=== PATIENT | female | born 1985 | race Caucasian/White ===

== ENCOUNTER 2020-11-25 16:20 | Emergency (ER) | payer BC, SELFPAY ==
[2020-11-25 16:25] VITALS: BP 126/59; PULSE 94; RESP 16; TEMP 36.8; O2SAT 97
--- NOTE | 2020-11-25 16:49 | ED.WOUNDLAC ---
HPI - Wound/Laceration General Chief Complaint: Skin/Abscess/Foreign Body Stated Complaint: infection Source: patient Mode of arrival: ambulatory Limitations: no limitations History of Present Illness HPI narrative: patient presents with a lesion on the right exterior nose that is red and warm to touch with currently no drainage but there is a crusty lesion in the center occurred couple of days ago after playing with her son and he inadvertently a bit her nose and subsequent lesion presented. Currently there is no fever chills no nausea vomiting no shortness of breath. Onset (ago): day(s) Location: face Place: home Patient tetanus UTD: No Context: accidental Related Data Home Medications Medication Instructions Recorded Confirmed aripiprazole 2 mg PO DAILY 11/25/20 11/25/20 fluoxetine 20 mg PO DAILY 11/25/20 11/25/20 Allergies Allergy/AdvReac Type Severity Reaction Status Date / Time No Known Allergies Allergy Unverified 06/06/16 14:57 Review of Systems Review of Systems: All systems reviewed & are unremarkable except as noted in HPI and below PMFSH Past Medical History Medical History Depression Family History Family History Other Diabetes mellitus Family history of arthritis Family history of malignant neoplasm Family history of mental disorder Social History Social History Smoking status: Heavy tobacco smoker Alcohol intake: current Exam Const: General: no acute distress and alert Orientation/consciousness: patient oriented x3 Limitations: altered mental status HENMT: Head: normal to inspection Other: round red lesion exterior right side of nose with crusted center with currently no drainage is warm and tender Eyes: Conjunctivae: conjunctivae normal Pupils: Equal, round and reactive pupils present Neck: Neck: normal visual inspection Chest: Chest palpation & inspection: normal inspection of the chest Resp: Effort & Inspection: normal respiratory effort Auscultation: clear to auscultation bilaterally Cardio: Rate: regular rate Rhythm: regular rhythm GI: GI Palp: Yes Soft to palpation Percussion: Yes normal to percussion Skin: Other: erythematous lesion on right side of nose with a crusty center approximately 3cm in diameter Neuro: General: patient oriented x3 and moves all extremities Psych: Mental Status: mental status grossly normal Affect: normal affect Course Course Emergency Course: placed some triple antibiotic ointment on the lesion and started a dose of Augmentin. Critical Care Time Critical Care Time Critical Care Time: No Discharge Plan Discharge Clinical Impression: Cellulitis Qualifiers: Site of cellulitis: face Qualified Code(s): L03.211 - Cellulitis of face Patient Disposition: Home, Self-Care Condition: Stable Instructions: Antibiotic Form, Cellulitis (ED) Additional Instructions: Take medicine as prescribed and follow-up with primary care physician if symptoms persist or worsen. Prescriptions: New mupirocin 2 % ointment 1 applic topical TID 7 Days Qty: 15 RF: 0 amoxicillin-pot clavulanate [Augmentin] 875-125 mg tablet 1 tablet PO Q12H Qty: 20 RF: 0 No Action fluoxetine 20 mg capsule 20 mg PO DAILY RF: 0 aripiprazole 2 mg tablet 2 mg PO DAILY RF: 0 Follow-up/Referrals: UNKNOWN,DOCTOR [Primary Care Provider] - Time of Disposition: 16:54
[2020-11-25] MEDS: NEOMYCIN/POLYMYXIN/BACITRACIN OINTMENT PACKET 1 PACKET TOPICAL (16:57)
[2020-11-25] MEDS: AMOXICILLIN/CLAVULANATE K 875-125 MG TAB 1 TABLET PO (16:57)
[2020-11-25 16:59] VITALS: RESP 16
== END 2020-11-25 17:00 | disposition home or self-care (01) ==
PROVIDERS: Emergency Provider Emergency Medicine
DX: L03.211 Cellulitis of face (principal)
CPT/HCPCS: 99283; A9270

== ENCOUNTER 2023-05-07 00:52 | Emergency (ER) | payer BC, SELFPAY ==
[2023-05-07 00:55] VITALS: BP 135/55; PULSE 98; RESP 16; TEMP 37.1; O2SAT 98
--- NOTE | 2023-05-07 00:57 | ED.GENADULT ---
HPI - General Adult General Chief complaint: Unspecified Stated complaint: unspecified Time Seen by Provider: 05/07/23 00:55 Source: patient Mode of arrival: ambulatory Limitations: no limitations History of Present Illness HPI narrative: 37-year-old female presented to the ER with -- tick stuck to her occipital scalp. the patient wanted this to be removed. -- Scintillating lights this morning, similar to what she has when she has her migraine. The patient did not have any headache subsequently. The blurred vision has resolved. No other visual complaints -- patient is . does not know exact LMP. Patient has not seen a primary care physician till date regarding her . Onset (ago): day(s) ( 1 day) Associated symptoms: denies other symptoms Treatments prior to arrival: none Related Data Home Medications Medication Instructions Recorded Confirmed aripiprazole 2 mg tablet 2 mg PO DAILY 11/25/20 11/25/20 fluoxetine 20 mg capsule 20 mg PO DAILY 11/25/20 11/25/20 Allergies Allergy/AdvReac Type Severity Reaction Status Date / Time No Known Allergies Allergy Unverified 05/07/23 01:01 Review of Systems Review of Systems: All systems reviewed & are unremarkable except as noted in HPI and below Constitutional: Constitutional: Reports as per HPI and Reports no additional constitutional complaints Eyes: Eyes: Reports as per HPI and Reports no additional eye complaints Comments: scintillating lights in her field of vision this morning which has resolved ENT: Reports system reviewed and no additional complaints, except as documented and Reports as per HPI Cardiovascular: Cardiovascular: Reports as per HPI and Reports no additional cardiovascular complaints Respiratory: Respiratory: Reports as per HPI and Reports no additional respiratory complaints Gastrointestinal: Gastrointestinal: Reports as per HPI and Reports no additional gastrointestinal complaints Genitourinary: Genitourinary: Reports no additional female genitourinary complaints Comments: amenorrhea for the past 3 months Musculoskeletal: Musculoskeletal: Reports no additional musculoskeletal complaints and Reports as per HPI Integumentary/Breasts: Skin/Breast: Reports system reviewed and no additional complaints, except as docu and Reports as per HPI Neurologic: Reports system reviewed and no additional complaints, except as documented and Reports as per HPI Psychiatric: Psychiatric: Reports no additional psychiatric complaints and Reports as per HPI Endocrine: Endocrine: Reports no additional endocrine complaints and Reports as per HPI Hematologic/Lymphatic: Hematologic/Lymphatic: Reports no additional hematologic/lymphatic complaints and Reports as per HPI Allergic/Immunologic: Allergic/Immunologic: Reports no additional allergic/immunologic complaints and Reports as per HPI [facility] Past Medical History Medical History Depression Family History Family History Other Diabetes mellitus Family history of arthritis Family history of malignant neoplasm Family history of mental disorder Social History Social History Smoking status: Heavy tobacco smoker Alcohol intake: current Exam Narrative: hemodynamically stable Const: General: healthy appearing and no acute distress Orientation/consciousness: patient oriented x3 Limitations: no limitations HENMT: Head: normal to inspection Ears: external ears normal Face/Nose/Sinus: Normal external nose present Face and sinus: normal facial exam Mouth: Yes Normal oral and palatal mucosa present Throat: posterior oropharynx normal Eyes: Conjunctivae: conjunctivae normal Pupils: Equal, round and reactive pupils present EOM: EOMs intact bilaterally Direct Ophthalmoscopy: no photophobia Neck: N
[2023-05-07 01:31] LABS: Basophils Absolute Auto 0.03 K/mm3 (0.00-0.10); Basophils Percent Auto 0.3 % (0.0-1.0); Eosinophils Absolute Auto 0.23 K/mm3 (0.02-0.50); Eosinophils Percent Auto 2.3 % (1.0-6.0); Hemoglobin 11.2 g/dL (12.0-15.0); Immature Granulocyte Absolute 0.04 K/mm3 (0.00-0.00); Immature Granulocyte Percent A 0.4 % (0.0-0.0); Lymphocytes Percent Auto 25.5 % (18.0-42.0); Mean Corpuscular HGB Conc 32.9 g/dL (32.0-36.0); Mean Corpuscular Hemoglobin 30.8 pg (27.0-31.0); Mean Corpuscular Volume 93.4 fL (78.0-102.0); Mean Platelet Volume 8.7 fl (9.2-11.8); Monocytes Absolute Auto 0.45 K/mm3 (0.10-0.90); Monocytes Percent Auto 4.4 % (2.0-11.0); Neutrophils Absolute Auto 6.8 K/mm3 (1.7-7.2); Neutrophils Percent Auto 67.1 % (50.0-70.0); Platelet Count Result 314 K/mm3 (150-420); Red Blood Count 3.64 M/mm3 (4.20-5.40); Red Cell Distribution Width 13.1 % (11.6-14.4); White Blood Count 10.2 K/mm3 (4.8-10.8)
[2023-05-07 02:01] LABS: Appearance Urine Clear (Clear); Bilirubin Urine Negative (Negative); Blood Urine Negative (Negative); Color Urine Yellow (Yellow); Glucose Urine UA 1+ (Negative); Ketones Urine Negative (Negative); Leukocyte Esterase Ur Negative LEU/UL (Negative); Nitrate Urine Negative (Negative); Protein Urine Negative (Negative); Specific Grav Ur 1.025 (1.010-1.020); Urobilinogen Urine 0.2 mg/dL (0.2-1.0)
[2023-05-07 02:06] LABS: Add Urine Microscopic? YES; Bacteria Urine None seen /hpf; RBC Urine 0-2 /hpf (0-2); Squamous Epithelial Cell Urine Moderate /hpf (Few); WBC Urine 0-3 /hpf (0-3)
[2023-05-07 02:16] LABS: Alanine Aminotransferase 40 U/L (14-59); Alkaline Phosphatase 59 U/L (46-116); Anion Gap 9 mmol/L (8-16); Aspartate Amino Transferase 16 U/L (15-37); Bilirubin,Total 0.1 mg/dL (0.00-1.00); Blood Urea Nitrogen 8 mg/dL (7-18); Calcium 8.8 mg/dL (8.5-10.1); Carbon Dioxide 24 mmol/L (21-32); Chloride 98 mmol/L (98-108); Estimated CRCL calculation 134 ml/min; Estimated Glomerular Filt Rate > 60; Glucose 150 mg/dL (70-99); Osmolality Calculated 273 mOsm/kg (285-295); Potassium 3.2 mmol/L (3.5-5.1); Sodium 131 mmol/L (136-145)
[2023-05-07] MEDS: POTASSIUM CHLORIDE 20 MEQ ER TABLET 40 MEQ PO (02:27)
--- NOTE | 2023-05-07 02:31 | PC.NURSE ---
Pt checked for any remaining ticks by this RN in common places such as scalp, ears, armpits, legs, waist, and back. No other ticks noted. aware.
[2023-05-07 02:46] VITALS: BP 133/51; PULSE 84; RESP 16; TEMP 36.6; O2SAT 99
== END 2023-05-07 02:46 | disposition home or self-care (01) ==
PROVIDERS: Emergency Provider Internal Medicine Critical Care Medicine
DX: O99.019 Anemia complicating pregnancy, unspecified trimester (principal); O26.899 Other specified pregnancy related conditions, unspecified trimester; R73.9 Hyperglycemia, unspecified; S00.96XA Insect bite (nonvenomous) of unspecified part of head, initial encounter; O99.330 Smoking (tobacco) complicating pregnancy, unspecified trimester; F17.200 Nicotine dependence, unspecified, uncomplicated; Z3A.00 Weeks of gestation of pregnancy not specified; W57.XXXA Bitten or stung by nonvenomous insect and other nonvenomous arthropods, initial encounter
CPT/HCPCS: 36415; 80053; 81001; 84702; 85025; 99283; A9270

== ENCOUNTER 2023-05-26 18:12 | Emergency (ER) | payer BC, SELFPAY ==
[2023-05-26 18:12] VITALS: BP 147/78; PULSE 106; RESP 18; TEMP 36.8; O2SAT 98
--- NOTE | 2023-05-26 18:53 | ED.GENADULT ---
HPI - General Adult General Chief complaint: Vaginal Bleeding Stated complaint: 3 months and bleeding Time Seen by Provider: 05/26/23 18:32 History of Present Illness HPI narrative: Summer is a 38 months gestation with twins with a PMH of tobacco abuse, and depression that presented to the ED with a couple genitourinary concerns. For the last few days she has had a lot of vaginal discharge for the last few days. It ranges between clear scant drainage but at times it has soaked a pad and been pink tinged. She had one episode of cramping 2 days ago but not since. She has had a few episodes of dysuria with hematuria as well. No back pain, fevers, or chills. She denies any new sexual partners. Related Data Home Medications Medication Instructions Recorded Confirmed aripiprazole 2 mg tablet 2 mg PO DAILY 11/25/20 05/26/23 fluoxetine 20 mg capsule 20 mg PO DAILY 11/25/20 05/26/23 aspirin 81 mg chewable tablet 81 mg PO DAILY 05/26/23 05/26/23 Allergies Allergy/AdvReac Type Severity Reaction Status Date / Time No Known Allergies Allergy Unverified 05/26/23 18:22 Review of Systems Review of Systems: All systems reviewed & are unremarkable except as noted in HPI and below PMFSH Past Medical History Medical History Depression Family History Family History Other Diabetes mellitus Family history of arthritis Family history of malignant neoplasm Family history of mental disorder Social History Social History Smoking status: Heavy tobacco smoker Alcohol intake: current Exam Const: General: healthy appearing and no acute distress Nutritional Appearance: well nourished Orientation/consciousness: patient oriented x3 Limitations: no limitations HENMT: Head: normal to inspection Ears: external ears normal Face and sinus: normal facial exam Eyes: Conjunctivae: conjunctivae normal Pupils: Equal, round and reactive pupils present EOM: EOMs intact bilaterally Neck: Neck: normal visual inspection Chest: Chest palpation & inspection: normal inspection of the chest Resp: Effort & Inspection: normal respiratory effort Cardio: Rate: regular rate GI: Inspection: non-distended GI Palp: Yes Soft to palpation, No Tenderness to palpation present (GI) and No Guarding due to palpation present (GI) : General: Yes no CVA tenderness External Female Exam: normal external appearance Speculum Exam - Vagina: normal appearance of the vagina, abnormal vaginal discharge malodorous, willis and frothy and No vaginal bleeding Speculum Exam - Cervix: Cervical os closed Back/Spine/Pelvis: Back: no CVA tenderness Skin: General skin exam: normal color Neuro: General: patient oriented x3 and moves all extremities Extrem: General: normal to inspection Psych: Mental Status: mental status grossly normal Course Course Emergency Course: Ordered UA, GC and chlamydia as well as wet prep As UA is unremarkable, trichomonas is negative, the cervix is closed and there is no pain or blood but there is pink/willis fouls smelling discharge BV is most likely. An Rx was sent to her pharmacy. Vital Signs Vital signs: Vital Signs Temperature 98.3 F 05/26/23 18:12 Pulse Rate 106 H 05/26/23 18:12 Respiratory Rate 18 05/26/23 18:12 Blood Pressure 147/78 H 05/26/23 18:12 Pulse Oximetry 98 05/26/23 18:12 Oxygen Delivery Room Air 05/26/23 18:12 Temperature 98.3 F 05/26/23 18:12 Pulse Rate 106 H 05/26/23 18:12 Respiratory Rate 18 05/26/23 18:12 Blood Pressure 147/78 H 05/26/23 18:12 Pulse Oximetry 98 05/26/23 18:12 Oxygen Delivery Room Air 05/26/23 18:12 Medical Decision Making Vital Signs Vital Signs: Vital Signs Temperature 98.3 F 05/26/23 18:12 Pulse Rate 106 H 05/26/23 18:12 Respiratory Rate
--- NOTE | 2023-05-26 19:15 | PC.NURSE ---
HIV consent refusal signed by pt. Prior to this RN arrival. Pt setup for vaginal exam and swabs/cultures.
[2023-05-26 19:31] LABS: Add Urine Microscopic? YES; Appearance Urine Clear (Clear); Bilirubin Urine Negative (Negative); Blood Urine Trace-Intact (Negative); Color Urine Light Yellow (Yellow); Glucose Urine UA Negative (Negative); Ketones Urine Negative (Negative); Leukocyte Esterase Ur 1+ LEU/UL (Negative); Nitrate Urine Negative (Negative); Protein Urine Negative (Negative); RBC Urine 0-2 /hpf (0-2); Specific Grav Ur <= 1.005 (1.010-1.020); Squamous Epithelial Cell Urine Few /hpf (Few); Urobilinogen Urine 0.2 mg/dL (0.2-1.0); pH Urine 6.5 (5.0-8.0)
[2023-05-26 19:32] LABS: Bacteria Urine Trace /hpf
[2023-05-26 19:53] LABS: Trichomonas Negative (Negative); Trichomonas Source Vaginal (Female)
--- NOTE | 2023-05-26 20:00 | PC.NURSE ---
ERP Dr. Barrett spoke c pt. about test results and need to call for f/u c her OB in AM. Pt has no pain, no other c/o. VSS.
[2023-05-26 20:11] VITALS: BP 125/68; PULSE 97; RESP 20; TEMP 36.9; O2SAT 98
--- NOTE | 2023-05-27 14:03 | PC.NURSE ---
WET PREP TRICHOMONAS FINAL RESULT: TRICHOMONAS : NEGATIVE. FUNGAL : NEGATIVE.
--- NOTE | 2023-05-29 16:41 | PC.NURSE ---
Final Urine culture report: No further treatment/action needed. per ERP Dr. Huggins.
--- NOTE | 2023-05-30 14:13 | PC.NURSE ---
Final results; C. Trachomatis RNA not detected and N. Gonorrhoeae RNA not detected.
== END 2023-05-26 20:16 | disposition home or self-care (01) ==
PROVIDERS: Emergency Provider Family Medicine
DX: O23.591 Infection of other part of genital tract in pregnancy, first trimester (principal); O99.331 Smoking (tobacco) complicating pregnancy, first trimester; F17.210 Nicotine dependence, cigarettes, uncomplicated; Z3A.00 Weeks of gestation of pregnancy not specified
CPT/HCPCS: 81001; 81513; 87086; 87088; 87210; 87491; 87591; 99284

== ENCOUNTER 2023-06-01 19:46 | Emergency (ER) | payer BC, SELFPAY ==
[2023-06-01 19:50] VITALS: BP 122/77; PULSE 87; RESP 20; TEMP 36.6; O2SAT 99
--- NOTE | 2023-06-01 19:50 | PC.NURSE ---
Emergency call placed to pts OB center at [facility] for high risk , spoke to Luis Antonio who [facility]
--- NOTE | 2023-06-01 20:09 | ED.GENADULT ---
HPI - General Adult General Chief complaint: OB/Uterine Contractions Stated complaint: miscarriage Time Seen by Provider: 06/01/23 20:09 Source: patient Mode of arrival: ambulatory Limitations: no limitations History of Present Illness HPI narrative: patient is a 37-year-old female intrauterine of twins 13 weeks intrauterine . EDC December 03, 2023. This is patient's 2nd she has 1 live she has no previous miscarriages until today. She was seen in the emergency room early in the week on April 26 and had bacterial vaginosis started on Flagyl 250 mg 3 times a day. She had some vaginal discharge and dysuria. Today this morning she felt fine. She was eating drinking stooling and voiding fine no fever cough runny nose sore throat bleeding or bruising dizziness or lightheadedness rash or itching pain anywhere drink other complaints. Prior to coming in the emergency room she went to the bathroom in the fetus was expelled her vagina. She had a little discomfort during this period. Denies any pain currently. Related Data Home Medications Medication Instructions Recorded Confirmed aripiprazole 2 mg tablet 2 mg PO DAILY 11/25/20 05/26/23 fluoxetine 20 mg capsule 20 mg PO DAILY 11/25/20 05/26/23 aspirin 81 mg chewable tablet 81 mg PO DAILY 05/26/23 05/26/23 Allergies Allergy/AdvReac Type Severity Reaction Status Date / Time No Known Allergies Allergy Unverified 05/26/23 18:22 Review of Systems Review of Systems: All systems reviewed & are unremarkable except as noted in HPI and below PMFSH Past Medical History Medical History Depression Family History Family History Other Diabetes mellitus Family history of arthritis Family history of malignant neoplasm Family history of mental disorder Social History Social History Smoking status: Heavy tobacco smoker Alcohol intake: current Exam Narrative: Female patient mild distress.? Head normocephalic, atraumatic.? Eyes conjunctiva pink sclera nonicteric.? Extraocular movements are intact.? Ears externally normal.? Oropharynx is clear with moist mucous membranes without exudates.? Neck is supple nontender no lymphadenopathy.? Back is nontender.? Lungs are clear.? Heart is regular rate and rhythm without murmurs gallops or rubs.? Chest wall is nontender.? Abdomen is soft and nontender, no hepatosplenomegaly or masses, no CVA tenderness no abdominal bruits.? patient has a fetus between her legs and fully expelled from her vagina neck to do of small piece of white tissue. Extremities no cyanosis clubbing or edema.? Skin is warm and dry without rashes or lesions.? Neurological patient is alert and oriented x4.? Motor and sensory grossly intact.? Gait is normal. Medical Decision Making MDM Narrative Medical decision making narrative: Patient placed in room 6 history and physical was done IV was started. Independent Historian: ? Patient Differential Dx includes but not limited to: miscarriage Medications were Reviewed:? ? Flagyl 250 twice a day Medications treatments given: IV was placed Independently Interpreted by me:? ?? point of care hand-held ultrasound showed no heart tones? External Source Review:?? ED visit from April 26 was reviewed Medical conditions/social Situation Impacting Patients Care:?? Shared decision Making:? evaluation was discussed with patient and her all questions were asked and answered and plan was agreed upon. Discussed with Dr. Lal At [facility] patient was accepted to the emergency department there she would get a full ultrasound. Prognosis is grave for the 2nd twin ? Clinical impression:? miscarriage? ? Patient disposition: ? transfer to [facility] to Dr. Lal ? Condition at disc
--- NOTE | 2023-06-01 20:20 | PC.NURSE ---
Fetus placed in bucket per [facility] request to transport fetus/embryo c pt to [facility]. Full report given to Luis Antonio and Kirstie in OB unit. Pt and spouse holding baby at this time. VSS on pt WNL.
--- NOTE | 2023-06-01 20:29 | PC.NURSE ---
Orders obtained to transfer pt to [facility] for further eval. Call placed to [facility] for pt transfer.
[2023-06-01 20:39] VITALS: BP 125/56; PULSE 98; RESP 18; TEMP 37.1; O2SAT 99
[2023-06-01 20:46] VITALS: BP 122/85; PULSE 90; RESP 18; TEMP 36.6; O2SAT 98
== END 2023-06-01 20:48 | disposition short-term general hospital (02) ==
PROVIDERS: Emergency Provider Emergency Medicine
DX: O03.4 Incomplete spontaneous abortion without complication (principal); O99.331 Smoking (tobacco) complicating pregnancy, first trimester; F17.200 Nicotine dependence, unspecified, uncomplicated; Z3A.13 13 weeks gestation of pregnancy
CPT/HCPCS: 99285

== ENCOUNTER 2023-07-26 08:15 | Emergency (ER) | payer BC, SELFPAY ==
--- NOTE | ~2023-07-26 | CT_ITS ---
EXAMINATION: CT abdomen pelvis w con DATE: 07/26/2023 11:10 INDICATION: Generalized abdominal pain TECHNIQUE: Computed tomography (CT) of the abdomen and pelvis was performed with 100 CC Omnipaque 350 intravenous contrast. Automated exposure control and iterative reconstruction technique were employe d. Exam dose: 715.03 mGy-cm total exam DLP. COMPARISON: None. FINDINGS: The lung bases are clear. Normal heart size. No pericardial or pleural effusion. 12 mm hepatic cyst. The liver, gallbladder, bile ducts, pancreas, pancreatic duct and spleen are othe rwise unremarkable. Normal morphology of the adrenal glands. No renal mass lesion or urinary tract calculus or hydroureteronephrosis is detected. Normal caliber of the abdominal aorta. No intraperitoneal or retroperitoneal or pelvic mass lesion or adenopathy or ascites. The uterus is enlarged, measuring up to 10 cm vertical dimension approximately 6 cm AP dimension. The re is a prominent amount of fluid and some enhancement within the endometrial cavity. Consider pelvic ultrasound for further evaluation. The appendix is not visualized. No bowel obstruction is detected. No intraperitoneal free air Small fat-containing umbilical hernia. No suspicious osteolytic or osteoblastic lesions. IMPRESSION: Fluid distention and enhancement within the endometrial cavity; consider pelvic ultrasou nd for further evaluation Reviewed, dictated and finalized at [facility]. Reviewed, dictated and finalized at [facility]. IMPRESSION: Fluid distention and enhancement within the endometrial cavity; co nsider pelvic ultrasound for further evaluation
--- NOTE | ~2023-07-26 | US_ITS ---
EXAMINATION: US pelvic complete w TV DATE: 07/26/2023 14:11 INDICATION: Concern for PID, abnormal CT. Negative urine test. D&C one month ago. TECHNIQUE: Multiple transabdominal and endovaginal sonographic images of the pelvis were obtained. COMPARISON: None. FINDINGS: Uterus: 10.8 x 5.8 x 6.1 cm. Endometrial complex measures 19 mm. 1 cm rounded fluid collection in the endometrium/central cavity of the uterine fundus. Right Ovary: 2.3 x 2.3 x 2.1 cm. Vascular flow is present. No adnexal mass. Left Ovary: 3.6 x 1.7 x 1.9 cm. Vascular flow is present. No adnexal mass. There is trace free fluid in the pelvis, within physiologic range. Intraluminal ureterocele at the left UVJ. IMPRESSION: Endometrial thickening, 1 cm endometrial/endometrial cavity fluid collection, endometrial thickening and enhancement in the prior CT. These findings may represent retained products, infection, or endome trial hyperplasia/polyp. Consider gynecology consultation. The endometrial/endometrial cavity fluid collection has the appearance of a gestational or pseudogest ational sac, but this is unlikely in the context of a reported negative urine test. Left ureterocele. Reviewed, dictated and finalized at [facility]. IMPRESSION: Endometrial thickening, 1 cm endometrial/endometrial cavity fluid collection, e ndometrial thickening and enhancement in the prior CT. These findings may repre sent retained products, infection, or endometrial hyperplasia/polyp. Consider g ynecology consultation. The endometrial/endometrial cavity fluid collection has the appearance of a ges tational or pseudogestational sac, but this is unlikely in the context of a rep orted negative urine test. Left ureterocele.
[2023-07-26 08:16] VITALS: BP 123/72; PULSE 89; RESP 19; TEMP 36.9; O2SAT 99
[2023-07-26 09:42] LABS: Basophils Percent Auto 0.2 % (0.2-1.2); Eosinophils Absolute Auto 0.1 K/mm3 (0-0.3); Hematocrit 38.3 % (37.0-47.0); Hemoglobin 12.5 g/dL (12.0-15.0); Immature Granulocyte Absolute 0.06 K/mm3 (0.00-0.031); Immature Granulocyte Percent A 0.4 % (0-0.5); Lymphocytes Percent Auto 17.4 % (18.3-44.2); Mean Corpuscular HGB Conc 32.6 g/dl (32-36); Mean Corpuscular Hemoglobin 30.3 pg (26-34); Mean Corpuscular Volume 92.7 fl (80-100); Monocytes Absolute Auto 0.6 K/mm3 (0.1-0.6); Monocytes Percent Auto 4.5 % (2.6-8.5); Neutrophils Absolute Auto 10.6 K/mm3 (1.3-6.7); Neutrophils Percent Auto 76.5 % (45.5-73.1); Platelet Count Result 366 k/mm3 (150-375); Red Blood Count 4.13 M/mm3 (4.2-5.4); Red Cell Distribution Width 13.5 % (11.5-14.5); White Blood Count 13.8 K/mm3 (4.5-10.0)
[2023-07-26 09:50] LABS: Appearance Urine Clear (Clear); Bacteria Urine None Seen /hpf; Bilirubin Urine Negative (Negative); Blood Urine 1+ (Negative); Color Urine Yellow (Yellow); Glucose Urine UA Negative (Negative); Ketones Urine Negative (Negative); Leukocyte Esterase Ur 2+ LEU/UL (Negative); Nitrate Urine Negative (Negative); Non Pathogenic Casts 0-2; Protein Urine Negative (Negative); Specific Grav Ur 1.013 (1.001-1.035); Squamous Epithelial Cell Urine Occasional /hpf (Few); Urobilinogen Urine 0.2 mg/dL (<2.0); WBC Urine 21-50 /hpf; pH Urine 5.5 (5.0-9.0)
[2023-07-26 09:56] LABS: Alanine Aminotransferase 33 U/L (6-35); Albumin Level 4.2 g/dL (3.5-5.1); Alkaline Phosphatase 71 U/L (38-126); Anion Gap 8 mmol/L (8-16); Aspartate Amino Transferase 22 U/L (14-36); Bilirubin,Total 0.4 mg/dL (0.2-1.3); Blood Urea Nitrogen 7 mg/dL (7-17); Calcium 8.8 mg/dL (8.4-10.2); Carbon Dioxide 26 mmol/L (22-30); Chloride 102 mmol/L (98-107); Estimated CRCL calculation 129 ml/min; Estimated Glomerular Filt Rate > 60; Glucose 97 mg/dL (65-110); Lipase 28 U/L (23-300); Potassium 3.9 mmol/L (3.4-5.0); Sodium 136 mmol/L (137-145)
[2023-07-26 09:57] LABS: Add Urine Microscopic? YES
--- NOTE | 2023-07-26 10:03 | ED.ABDPAIN ---
HPI - Abdominal Pain General Chief Complaint: Abdominal Pain Stated Complaint: abdominal pain Time Seen by Provider: 07/26/23 09:45 History of Present Illness HPI narrative: 37-year-old female with a history of D&C 1 month ago after a spontaneous with twins reports for evaluation for generalized abdominal pain for the past 3 days. Patient states the pain is intermittent and crampy and at times is sharp causing her to double over. She reports nausea the first 2 days which is since subsided. She states she has had loose stools for the past few years but feels they have become more loose over the past 3 days. She is being treated for bacterial vaginosis diagnosed by urgent care 3 days ago. She denies missing any doses of her Flagyl and is on day 3 of her antibiotics. States she tested negative for chlamydia, gonorrhea and trichomonas in urgent care recently. She does report a pink and mucus vaginal discharge for the past 2 days. Feels that she is supposed to have her period soon but is unsure when. LMP unknown. Patient states she missed her D&C follow-up appointments multiple times in the schedule now in August. She denies blood or melena, hematuria, back pain, fever, body aches or chills. She denies dysuria. Related Data Home Medications Medication Instructions Recorded Confirmed aripiprazole 2 mg tablet 2 mg PO DAILY 11/25/20 05/26/23 fluoxetine 20 mg capsule 20 mg PO DAILY 11/25/20 05/26/23 aspirin 81 mg chewable tablet 81 mg PO DAILY 05/26/23 05/26/23 Allergies Allergy/AdvReac Type Severity Reaction Status Date / Time No Known Allergies Allergy Unverified 05/26/23 18:22 Review of Systems Review of Systems: CONSTITUTIONAL: Denies fever, chills EYES: Denies visual changes, redness, or discharge. ENT: Denies rhinorrhea, congestion, sore throat, or otalgia. CARDIOVASCULAR: Denies chest pain, palpitations, or edema. RESPIRATORY: Denies cough or dyspnea. GASTROINTESTINAL: See HPI GENITOURINARY: See HPI SKIN: Denies rash or itching. MUSCULOSKELETAL: Denies back pain, joint pain, or myalgia. NEUROLOGIC: Denies headache, numbness, dizziness, or weakness. PSYCHIATRIC: Denies anxiety or depression. [facility] Past Medical History Medical History Depression Family History Family History Other Diabetes mellitus Family history of arthritis Family history of malignant neoplasm Family history of mental disorder Social History Social History Smoking status: Heavy tobacco smoker Alcohol intake: current Exam Narrative: GENERAL: Well-appearing, in no acute distress. Nontoxic appearing. Patient resting comfortably in exam bed. She is pleasant and conversational. HEAD: Normocephalic EYES: PERRLA ENT: Nares clear. Mucous membranes moist. Oropharynx without tonsillar hypertrophy exudate or other lesions. NECK: Supple. CHEST: No respiratory distress. Clear to auscultation, no adventitious breath sounds. HEART: Regular rate and rhythm. No murmur heard. Normal peripheral pulses. ABDOMEN: Normal active bowel sounds. Generalized abdominal tenderness, worse in the lower quadrants and suprapubic region. No guarding, rebound or rigidity. No CVA tenderness. : No external lesions or rashes. Moderate amount of mucopurulent discharge in the vaginal vault with streaks of blood. Cervical os slightly open. No cervical motion tenderness, adnexal tenderness or masses appreciated. EXTREMITIES: Normal range of motion. No edema. SKIN: Warm, dry, no rash. NEURO: No focal deficits. Alert and oriented x3. PSYCH: Normal mood and affect. Course Vital Signs Vital signs: Vital Signs Temperature 98.4 F 07/26/23 08:16 Pulse Rate 89 07/26/23 08:16 Respiratory Rate 19 07/26/23 08:16 Blood Pressure 123/72 07/26/23 08:16 Pulse Ox
[2023-07-26] MEDS: SODIUM CHLORIDE 0.9% IV 1,000 ML 999 ML IV CONT (10:19)
[2023-07-26] MEDS: KETOROLAC 30 MG/ML VIAL (*BKC) IV PUSH (10:19)
[2023-07-26 10:59] LABS: CRP 7.4 mg/dL (<1.0)
[2023-07-26 12:05] LABS: Erythrocyte Sedimentation Rate 58 mm/hr (0-20)
[2023-07-26 12:11] VITALS: BP 122/75; PULSE 80; RESP 16; TEMP 36.2; O2SAT 99
[2023-07-26 13:22] LABS: Trichomonas Vag PCR NOT DETECTED (NOT DETECTE)
[2023-07-26 13:47] LABS: Chlamydia trachomatis NOT DETECTED (NOT DETECTE); Neisseria gonorrhoeae PCR NOT DETECTED (NOT DETECTE)
[2023-07-26 17:28] LABS: Beta HCG Quantitative 10.21 mIU/ML
[2023-07-26] MEDS: DOXYCYCLINE HYCLATE 100 MG TABLET PO (17:51)
[2023-07-26] MEDS: metroNIDAZOLE 250 MG TABLET 500 MG PO (17:51)
[2023-07-26] MEDS: cefTRIAXone 1 GM VIAL 0.5 GM IM (17:51)
[2023-07-26 17:52] VITALS: BP 113/62; PULSE 85; RESP 16; TEMP 36.2; O2SAT 99
[2023-07-26] MEDS: LIDOCAINE HCL 1% LOCAL INJ 10 ML VIAL (17:52)
== END 2023-07-26 18:03 | disposition home or self-care (01) ==
PROVIDERS: Emergency Medicine; Emergency Provider Physician Assistant
DX: N73.9 Female pelvic inflammatory disease, unspecified (principal); F32.A Depression, unspecified; F17.200 Nicotine dependence, unspecified, uncomplicated; N28.89 Other specified disorders of kidney and ureter
CPT/HCPCS: 36415; 74177; 76830; 76856; 80053; 81001; 81025; 83690; 84702; 85025; 85652; 86140; 87070; 87086; 87088; 87491; 87591; 87661; 96361; 96372; 96374; 99284; A9270; J0696; J1885; J7030; Q9967

== ENCOUNTER 2023-08-04 17:38 | Emergency (ER) | payer BC, SELFPAY ==
--- NOTE | ~2023-08-04 | US_ITS ---
EXAMINATION: US pelvic complete w TV DATE: 08/04/2023 20:31 INDICATION: Pelvic inflammatory disease. TECHNIQUE: Multiple transabdominal and transvaginal sonographic images of the pelvis were obtained. COMPARISON: Ultrasound 07/26/2023, CT abdomen and pelvis 07/26/2023 FINDINGS: TRANSABDOMINAL ULTRASOUND: The uterus measures 9.9 x 5.4 x 6.4 cm. There is no free fluid in the pelvis. TRANSVAGINAL ULTRASOUND: The endometrial complex measures 22 mm in thickness. The right ovary measures 3.3 x 2.1 x 2.0 cm. The left ovary measures 2.1 x 1.5 x 2.8 cm. There is normal vascular flow in the ovaries. IMPRESSION: 1. Thickened endometrial complex. Given the clinical concern for infection and reported history of re cent dilatation and curettage, this finding may be seen with endometrial hyperplasia, polyp, endometr itis, retained products of conception, or hematoma. Reviewed, dictated and finalized at location E. IMPRESSION: 1. Thickened endometrial complex. Given the clinical concern for infection and reported history of recent dilatation and curettage, this finding may be seen w ith endometrial hyperplasia, polyp, endometritis, retained products of concepti on, or hematoma.
[2023-08-04 17:41] VITALS: BP 133/68; PULSE 91; RESP 16; TEMP 36.9; O2SAT 97
[2023-08-04 18:22] LABS: Basophils Absolute Auto 0.1 K/mm3 (0.0-0.1); Basophils Percent Auto 0.4 % (0.2-1.2); Eosinophils Absolute Auto 0.1 K/mm3 (0-0.3); Eosinophils Percent Auto 0.8 % (0-4.4); Hemoglobin 13.1 g/dL (12.0-15.0); Immature Granulocyte Absolute 0.06 K/mm3 (0.00-0.031); Immature Granulocyte Percent A 0.4 % (0-0.5); Lymphocytes Absolute Auto 2.85 K/mm3 (0.9-3.2); Mean Corpuscular HGB Conc 33.6 g/dl (32-36); Mean Corpuscular Hemoglobin 30.3 pg (26-34); Mean Corpuscular Volume 90.1 fl (80-100); Mean Platelet Volume 9.1 fl (7.4-10.4); Monocytes Absolute Auto 0.5 K/mm3 (0.1-0.6); Monocytes Percent Auto 3.6 % (2.6-8.5); Neutrophils Absolute Auto 10.7 K/mm3 (1.3-6.7); Neutrophils Percent Auto 74.8 % (45.5-73.1); Platelet Count Result 477 k/mm3 (150-375); Red Blood Count 4.33 M/mm3 (4.2-5.4); Red Cell Distribution Width 13.5 % (11.5-14.5); White Blood Count 14.3 K/mm3 (4.5-10.0)
[2023-08-04 18:40] LABS: Acetaminophen < 10 ug/mL (10-30); Ethanol < 10 mg/dL (<10); Salicylate < 1.0 mg/dL (2-20)
--- NOTE | 2023-08-04 18:52 | ED.PSYCH ---
HPI - Psych General Chief Complaint: Psychiatric Symptoms <Naty Champagne PA-C - Last Filed: 08/06/23 17:10> Stated Complaint: mental evaluation - hallucinations <NOEL Schmitz Last Filed: 08/06/23 17:10> Time Seen by Provider: 08/04/23 18:24 <NOEL Schmitz Last Filed: 08/06/23 17:10> Source: patient <NEOL Schmitz Last Filed: 08/06/23 17:10> Mode of arrival: ambulatory <NOEL Schmitz Last Filed: 08/06/23 17:10> Limitations: no limitations <NOEL Schmitz Last Filed: 08/06/23 17:10> History of Present Illness HPI Narrative: This is a 37 year old female that presents to the ER as she feels unsafe. Reports she does not think that her son and her are safe at home. She lives with her boyfriend who is her son's father. Reports she went to a [facility] half[facility] with her son, but has to be discharged soon. She has history of bipolar depression. She stopped taking her Abilify because she does not like the way it makes her feel. Reports she has been hearing voices and has distortion of reality. Reports history of past self harm with cutting. Reports no previous psychiatric hospitalizations. Reports no current thoughts of hurting herself or anyone else. <NOEL Schmitz Last Filed: 08/06/23 17:10> Related Data Home Medications: Home Medications Medication Instructions Recorded Confirmed aripiprazole 2 mg tablet 2 mg PO DAILY 11/25/20 05/26/23 fluoxetine 20 mg capsule 20 mg PO DAILY 11/25/20 05/26/23 aspirin 81 mg chewable tablet 81 mg PO DAILY 05/26/23 05/26/23 <NOEL Schmitz Last Filed: 08/06/23 17:10> Allergies/Adverse Reactions: Allergies Allergy/AdvReac Type Severity Reaction Status Date / Time No Known Allergies Allergy Unverified 05/26/23 18:22 <NOEL Schmitz Last Filed: 08/06/23 17:10> Review of Systems Review of Systems: CONSTITUTIONAL: Denies fever GASTROINTESTINAL: Denies abdominal pain, nausea, vomiting GENITOURINARY: Denies dysuria or hematuria. PSYCHIATRIC: Reports depression. <Naty Champagne PA-C - Last Filed: 08/06/23 17:10> All systems reviewed & are unremarkable except as noted in HPI and below <Naty Champagne PA-C - Last Filed: 08/06/23 17:10> PMFSH Past Medical History Medical History: Medical History Depression <Naty Champagne PA-C - Last Filed: 08/06/23 17:10> Family History Family History: Family History Other Diabetes mellitus Family history of arthritis Family history of malignant neoplasm Family history of mental disorder <Naty Champagne PA-C - Last Filed: 08/06/23 17:10> Social History Social History: Social History (Updated 08/04/23 @ 19:34 by Naty Champagne PA-C) Smoking status: Heavy tobacco smoker Alcohol intake: current Substance use: current Substance use type: marijuana <Naty Champagne PA-C - Last Filed: 08/06/23 17:10> Exam Narrative: GENERAL: Well-appearing, well-nourished, and in no acute distress. HEAD: Normocephalic, atraumatic. EYES: EOMI. CHEST: Clear to auscultation. No respiratory distress. No wheezes rales or rhonchi HEART: Regular rate and rhythm. No murmur heard. Normal peripheral pulses. ABDOMEN: Soft, nontender, nondistended, normal active bowel sounds. EXTREMITIES: Normal range of motion. No edema. SKIN: Warm, dry, no rash. NEURO: No focal deficits. Alert and oriented x3. PSYCH: Depressed mood and affect. Tearful PELVIC: Normal external genitalia. No CMT. No abnormal discharge. Scant amount of dark red blood in the vaginal vault <Naty Champagne PA-C - Last Filed: 08/06/23 17:10> Course Course Emergency Course: Patient is medically cleared for evaluation by crisis. <Naty Champagne PA-C - Last Filed: 08/06/23 17:10> Consultations Consultation #1:
[2023-08-04 19:03] LABS: Appearance Urine Turbid (Clear); Bacteria Urine None Seen /hpf; Bilirubin Urine 1+ (Negative); Blood Urine 3+ (Negative); Color Urine Dark Yellow (Yellow); Glucose Urine UA Negative (Negative); Ketones Urine Negative (Negative); Leukocyte Esterase Ur 2+ LEU/UL (Negative); Need Manual Microscopic Reviewed; Nitrate Urine Negative (Negative); Non Pathogenic Casts 0-2; Protein Urine 2+ mg/dL (Negative); RBC Urine >100 /hpf (0-2); Specific Grav Ur 1.026 (1.001-1.035); Squamous Epithelial Cell Urine Occasional /hpf (Few); WBC Urine >100 /hpf; pH Urine 5.5 (5.0-9.0)
[2023-08-04 19:06] LABS: Add Urine Microscopic? YES
[2023-08-04 19:07] LABS: Influenza A QL RT-PCR Negative (Negative); Influenza B QL RT-PCR Negative (Negative); SARS-CoV-2 RNA PCR Negative (Negative)
[2023-08-04 19:23] LABS: Alanine Aminotransferase 34 U/L (6-35); Albumin Level 4.3 g/dL (3.5-5.1); Alkaline Phosphatase 68 U/L (38-126); Anion Gap 9 mmol/L (8-16); Aspartate Amino Transferase 31 U/L (14-36); Bilirubin,Total 0.3 mg/dL (0.2-1.3); Blood Urea Nitrogen 9 mg/dL (7-17); Calcium 9.2 mg/dL (8.4-10.2); Carbon Dioxide 24 mmol/L (22-30); Chloride 105 mmol/L (98-107); Estimated CRCL calculation 129 ml/min; Estimated Glomerular Filt Rate > 60; Glucose 121 mg/dL (65-110); Potassium 3.8 mmol/L (3.4-5.0); Sodium 138 mmol/L (137-145)
[2023-08-04 19:32] LABS: Amphetamine Screen Urine Negative (Negative); Barbiturate Screen Urine Negative (Negative); Benzodiazepines Screen Urine Negative (Negative); Cannabinoid Screen Urine Positive (Negative); Cocaine Screen Urine Negative (Negative); Methadone Screen Urine Negative (Negative); Opiate Screen Urine Negative (Negative); Phencyclidine Screen Urine Negative (Negative)
[2023-08-04 21:33] VITALS: BP 136/88; PULSE 88; RESP 22; TEMP 36.4; O2SAT 100
[2023-08-04] MEDS: DOXYCYCLINE HYCLATE 100 MG TABLET PO (21:46)
[2023-08-04] MEDS: metroNIDAZOLE 250 MG TABLET 500 MG PO (21:46)
--- NOTE | 2023-08-05 02:28 | PC.NURSE ---
Per Crisis staff patient is voluntary and will be transferred.
--- NOTE | 2023-08-05 06:46 | PC.NURSE ---
Patient did not want Haldol or Ativan. Notified Dr. Hays, who advised to hold off on medication as long as patient remains calm.
[2023-08-05 07:27] VITALS: BP 149/87; PULSE 89; RESP 18; O2SAT 100
--- NOTE | 2023-08-05 07:27 | PC.NURSE ---
Patient report received from ETTA John. All questions answered and care of patient assumed.
--- NOTE | 2023-08-05 08:36 | PC.NURSE ---
Faxed over pt chart to the following facilities [facility]
[2023-08-05] MEDS: DOXYCYCLINE HYCLATE 100 MG TABLET PO (09:58)
[2023-08-05] MEDS: metroNIDAZOLE 250 MG TABLET 500 MG PO (09:58)
--- NOTE | 2023-08-05 10:11 | PCCCNOTE ---
Call received from staff stating pt requesting to speak to a home advisor. When pt asked if she had someone specific she would like to talk with, she requested Amaya with the [facility] in [place] ([phone]). Call placed to Amaya when office opened and phone given to pt to speak directly with Amaya. Pt appeared to feel better and stated Amaya would be coming to see her here. Pt will call if there is anything else CC can assist her with.
--- NOTE | 2023-08-05 10:29 | PC.NURSE ---
Spoke with Natan at [facility] was told pt has been accepted and that she would call me back when she has the Doctor's name and pt room assignment
--- NOTE | 2023-08-05 12:33 | PC.NURSE ---
Pt gave verbal consent for this RN to speak to her father, Flo, regarding her care. Father, Flo, called ED, gave update on pt status.
[2023-08-05 13:18] VITALS: BP 140/88; PULSE 84; RESP 18; O2SAT 100
[2023-08-05 14:45] VITALS: BP 142/85; PULSE 106; RESP 14; O2SAT 98
== END 2023-08-05 14:45 ==
PROVIDERS: Emergency Medicine; Physician Assistant; Emergency Provider Emergency Medicine
DX: F31.9 Bipolar disorder, unspecified (principal); Z20.822 Contact with and (suspected) exposure to COVID-19; T43.596A Underdosing of other antipsychotics and neuroleptics, initial encounter; Z91.128 Patient's intentional underdosing of medication regimen for other reason; F17.200 Nicotine dependence, unspecified, uncomplicated; Z79.82 Long term (current) use of aspirin
CPT/HCPCS: 36415; 76830; 76856; 80053; 80307; 81001; 81025; 84443; 85025; 87086; 87088; 87636; 99285; A9270

== ENCOUNTER 2023-09-24 09:41 | Emergency (ER) | payer BC, SELFPAY ==
--- NOTE | ~2023-09-24 | CT_ITS ---
EXAMINATION: CT abdomen pelvis w con INDICATION: Abdominal pain and bleeding TECHNIQUE: Computed tomographic images of the abdomen and pelvis were obtained after the administrati on of 100 cc of Omnipaque 350 intravenous contrast. The dose-length product (DLP) was 645.88 mGy-cm. Automated exposure control and iterative reconstruction technique were employed. COMPARISON: CT, 07/26/2023 FINDINGS: Minimal dependent atelectasis is present in the lung bases. The heart size is normal. There is a 12 mm cyst of the liver. The spleen, pancreas, gallbladder, and adrenal glands are normal. The kidneys are unremarkable. There is a marked amount of inflammation in the pelvis abutting the uterus. There appear to be fluid-filled bilateral fallopian tubes. The ovaries are not well demonstrated. Th ere is a small volume of ascites. Retroperitoneal inflammatory change is identified. There is an appr oximately 3.9 x 2.5 cm complex fluid collection in the lower uterine segment. No free intraperitoneal gas or evidence of bowel obstruction. IMPRESSION: 1. Findings consistent with pelvic inflammatory disease and salpingitis versus pelvic abscess. 2. Fluid collection in the lower uterine segment which could reflect hematoma, abscess, or retained p roducts of conception. Reviewed, dictated and finalized at location B. TH AND SAFETY COORDINATOR IMPRESSION: 1. Findings consistent with pelvic inflammatory disease and salpingitis versus pelvic abscess. 2. Fluid collection in the lower uterine segment which could reflect hematoma, abscess, or retained products of conception.
--- NOTE | ~2023-09-24 | US_ITS ---
EXAMINATION: US pelvic complete w TV DATE: 09/24/2023 11:07 INDICATION: Pelvic pain. Patient treated for pelvic inflammatory disease. Comparison:Ultrasound dated 08/04/2023 TECHNIQUE: Multiple transabdominal and endovaginal sonographic images of the pelvis performed. FINDINGS: The uterus measures 10.8 x 5.8 x 4.9 cm. The endometrial complex measures 8 mm. The right ovary is not definitely visualized due to heterogeneous appearing soft tissue mass and flui d collection in the right adnexa/posterior cul-de-sac. The left ovary is unremarkable measuring 3.2 x 2.1 x 2 cm There is no free fluid in the pelvis. There are no abnormal masses seen on either side. IMPRESSION: 1. Large complex soft tissue and fluid collection involving the right adnexa. Differential diagnosis includes infection (i.e. pelvic inflammatory disease/abscess) and hematoma. Consider correlation with CT without and with IV contrast. Neoplasm is unlikely given this abnormal soft tissue has developed since the 08/04/2023 examination. Reviewed, dictated and finalized at location A. MACHINERY ASSEMBLER IMPRESSION: 1. Large complex soft tissue and fluid collection involving the right adnexa. D ifferential diagnosis includes infection (i.e. pelvic inflammatory disease/absc ess) and hematoma. Consider correlation with CT without and with IV contrast. N eoplasm is unlikely given this abnormal soft tissue has developed since the 07/18 examination.
[2023-09-24 09:41] VITALS: BP 129/66; PULSE 117; RESP 18; TEMP 36.4; O2SAT 97
--- NOTE | 2023-09-24 09:59 | ED.ABDPAIN ---
HPI - Abdominal Pain General Chief Complaint: Abdominal Pain Stated Complaint: pelvic pain Time Seen by Provider: 09/24/23 09:56 Source: patient Mode of arrival: ambulatory Limitations: no limitations History of Present Illness HPI narrative: 38-year-old female, smoker with bipolar disorder, A1 with miscarriage of twins in June of 2023, pelvic inflammatory disease/ endometritis( based on thickening of the endometrial stripe) diagnosed in July of 2023 and treated with Rocephin, doxycycline and Flagyl . She tested negative for chlamydia, gonorrhea and Trichomonas. She presents to the ER with a 3 day history of -- lower abdominal pain -- low-grade fever -- increased frequency of micturition -- chronic vaginal discharge for 1 month. No nausea/vomiting / diarrhea. No dysuria or hematuria. MD elicited complaint: abdominal pain Pertinent past history: other ( pelvic inflammatory disease) Pain Consistency: constant Location: suprapubic Severity: mild Quality: cramping Radiation: none Migration to: no migration Exacerbating factors: nothing Relieving factors: nothing Associated symptoms: denies other symptoms and other ( vaginal discharge) Related Data Patient : No Home Medications Medication Instructions Recorded Confirmed aripiprazole 2 mg tablet 2 mg PO DAILY 11/25/20 09/24/23 fluoxetine 20 mg capsule 20 mg PO DAILY 11/25/20 09/24/23 Allergies Allergy/AdvReac Type Severity Reaction Status Date / Time No Known Allergies Allergy Verified 09/24/23 09:54 Review of Systems Review of Systems: All systems reviewed & are unremarkable except as noted in HPI and below Constitutional: Constitutional: Reports as per HPI and Reports no additional constitutional complaints Eyes: Eyes: Reports as per HPI and Reports no additional eye complaints ENT: Reports system reviewed and no additional complaints, except as documented and Reports as per HPI Cardiovascular: Cardiovascular: Reports as per HPI and Reports no additional cardiovascular complaints Respiratory: Respiratory: Reports as per HPI and Reports no additional respiratory complaints Gastrointestinal: Gastrointestinal: Reports as per HPI, Reports no additional gastrointestinal complaints and Reports abdominal pain Genitourinary: Genitourinary: Reports vaginal discharge Musculoskeletal: Musculoskeletal: Reports no additional musculoskeletal complaints and Reports as per HPI Neurologic: Reports system reviewed and no additional complaints, except as documented and Reports as per HPI Psychiatric: Comments: patient has a history of bipolar and is on Abilify and fluoxetine. Endocrine: Endocrine: Reports no additional endocrine complaints and Reports as per HPI Hematologic/Lymphatic: Hematologic/Lymphatic: Reports no additional hematologic/lymphatic complaints and Reports as per HPI Allergic/Immunologic: Allergic/Immunologic: Reports no additional allergic/immunologic complaints and Reports as per HPI PMFSH Past Medical History Medical History Depression Family History Family History Other Diabetes mellitus Family history of arthritis Family history of malignant neoplasm Family history of mental disorder Social History Social History Smoking status: Heavy tobacco smoker Alcohol intake: current Substance use: current Substance use type: marijuana Exam Const: General: no acute distress Nutritional Appearance: well nourished Orientation/consciousness: patient oriented x3 Limitations: no limitations HENMT: Head: normal to inspection Ears: external ears normal Face/Nose/Sinus: Normal external nose present Face and sinus: normal facial exam Mouth: Yes Normal oral and palatal mucosa present Throat: posterior oropharynx normal Eyes: Conjunctiva
[2023-09-24] MEDS: ACETAMINOPHEN 325 MG TABLET 650 MG PO (11:09)
[2023-09-24 11:15] LABS: Hematocrit 40.8 % (35.0-49.0); Hemoglobin 13.5 g/dL (12.0-15.0); Mean Corpuscular HGB Conc 33.1 g/dL (32.0-36.0); Mean Corpuscular Hemoglobin 29.5 pg (27.0-31.0); Mean Corpuscular Volume 89.3 fL (78.0-102.0); Mean Platelet Volume 9.2 fl (9.2-11.8); Platelet Count Result 382 K/mm3 (150-420); Red Blood Count 4.57 M/mm3 (4.20-5.40); Red Cell Distribution Width 14.3 % (11.6-14.4)
[2023-09-24 11:17] LABS: Appearance Urine Clear (Clear); Bilirubin Urine Negative (Negative); Blood Urine 3+ (Negative); Color Urine Light Yellow (Yellow); Glucose Urine UA Negative (Negative); Ketones Urine Negative (Negative); Leukocyte Esterase Ur 2+ LEU/UL (Negative); Nitrate Urine Negative (Negative); Protein Urine Negative (Negative); Specific Grav Ur <= 1.005 (1.010-1.020); Urobilinogen Urine 0.2 mg/dL (0.2-1.0)
[2023-09-24 11:20] LABS: Pregnancy On Board Control Positive; Urine Pregnancy Test Negative
[2023-09-24 11:21] LABS: White Blood Count 28.2 K/mm3 (4.8-10.8)
[2023-09-24 11:23] LABS: Add Urine Microscopic? YES; Bacteria Urine 1+ /hpf; Squamous Epithelial Cell Urine Few /hpf (Few)
[2023-09-24 11:28] LABS: Partial Thromboplastin Time 31.3 SEC (23.90-30.70); Prothrombin Time 11.4 Seconds (9.50-12.10)
[2023-09-24 11:29] LABS: Band Neutrophils Percent 0 % (0-6); Basophils Percent Manual 0 % (0-1); Eosinophils Percent Manual 0 % (1-6); Lymphocytes Absolute Manual 2.25 K/mm3 (1.1-4.5); Lymphocytes Percent Manual 8 % (18-44); Monocytes Absolute Manual 0.28 K/mm3 (0.1-0.90); Monocytes Percent Manual 1 % (3-9); Neutrophils Absolute Manual 25.66 K/mm3 (1.7-7.2); Neutrophils Percent Manual 91 % (46-73); Platelet Estimate Adequate (Adequate); Total Cells Counted 100
[2023-09-24 11:32] LABS: Lactic Acid Reflex 1.7 mmol/L (0.4-2.0)
[2023-09-24 11:37] LABS: Alanine Aminotransferase 15 U/L (14-59); Albumin Level 3.1 g/dL (3.4-5.0); Alkaline Phosphatase 64 U/L (46-116); Anion Gap 10 mmol/L (8-16); Aspartate Amino Transferase < 10 U/L (15-37); Bilirubin,Total 0.5 mg/dL (0.00-1.00); Blood Urea Nitrogen 6 mg/dL (7-18); Carbon Dioxide 27 mmol/L (21-32); Chloride 97 mmol/L (98-108); Estimated Glomerular Filt Rate > 60; Glucose 112 mg/dL (70-99); Lipase 13 U/L (16-77); Osmolality Calculated 276 mOsm/kg (285-295); Potassium 3.6 mmol/L (3.5-5.1); Sodium 134 mmol/L (136-145); Thyroid Stimulating Hormone 2.25 uIU/mL (0.36-3.74); Total Protein 7.3 g/dL (6.4-8.2)
[2023-09-24 11:38] LABS: CRP 14.1 mg/dL (0.0-0.9)
[2023-09-24 11:45] VITALS: BP 127/84; PULSE 94; RESP 16; TEMP 37.2; O2SAT 98
[2023-09-24 11:46] LABS: HIV 1 P24 AG Negative (Negative); HIV 1/2 AB Negative (Negative)
[2023-09-24 12:20] LABS: Erythrocyte Sedimentation Rate 25 mm/hr (0-15)
[2023-09-24] MEDS: LACTATED RINGERS 500 ML 999 ML IV CONT (12:35)
[2023-09-24 13:24] VITALS: BP 121/69; PULSE 103; RESP 16; O2SAT 99
[2023-09-24] MEDS: DOXYCYCLINE 100 MG/NS 100 ML 100 MG/100 ML BAG IVPB (13:39)
[2023-09-24] MEDS: HYDROcodone/acetaminophen (*CRX) 5-325 MG TABLET 1 TAB PO (14:01)
[2023-09-24] MEDS: LACTATED RINGERS 1,000 ML 75 ML IV CONT (14:31)
[2023-09-24 15:20] VITALS: BP 107/64; PULSE 101; RESP 16; TEMP 37; O2SAT 96
[2023-09-24 16:45] VITALS: BP 99/60; PULSE 105; RESP 16; TEMP 36.7; O2SAT 97
[2023-09-25 07:55] LABS: Trichomonas Vag PCR NOT DETECTED (NOT DETECTE)
[2023-09-26 14:29] LABS: Chlamydia trachomatis NOT DETECTED (NOT DETECTE); Neisseria gonorrhoeae PCR NOT DETECTED (NOT DETECTE)
[2023-09-26 15:48] LABS: RPR Screen Non-Reactive (Non-Reactive)
--- NOTE | 2023-09-26 18:37 | PC.NURSE ---
pt transferred to [facility] room 341, spoke with nurse juan, notified of abnormal culture.
--- NOTE | 2023-09-27 15:41 | PC.NURSE ---
Final Cervix Culture report: Patient was transferred to [place], patient has been discharged, will fax to Dr. Shah's office [phone]
--- NOTE | 2023-09-30 12:54 | PC.NURSE ---
FINAL BLOOD CULTURES X2: NO GROWTH AFTER 5 DAYS. NO ACTION NEEDED.
== END 2023-09-24 16:55 | disposition short-term general hospital (02) ==
PROVIDERS: Emergency Provider Internal Medicine Critical Care Medicine; PCP Nurse Practitioner
DX: N73.0 Acute parametritis and pelvic cellulitis (principal); N70.93 Salpingitis and oophoritis, unspecified; R10.30 Lower abdominal pain, unspecified; F17.200 Nicotine dependence, unspecified, uncomplicated
CPT/HCPCS: 36415; 74177; 76830; 76856; 80053; 81001; 81025; 83605; 83690; 84443; 85025; 85610; 85652; 85730; 86140; 86592; 87040; 87070; 87077; 87086; 87088; 87147; 87491; 87591; 87661; 87806; 96361; 96365; 96367; 99285; A9270; J0696; J7120; Q9967

== ENCOUNTER 2023-09-24 17:37 | Inpatient (IN) | payer BC, SELFPAY ==
--- NOTE | 2023-09-24 18:19 | PC.NURSE ---
This patient, Summer Coon, was admitted to Medical Room 341-01. Patient/family oriented to hospital policies and general routines including ID bracelet, bed and alarms, visiting hours, pain management, procedures, bathroom and other care routines, personal items, smoking policy, room service/diet, and visiting hours. Information on how to activate the Rapid Response Team has been discussed. Patient/Family are encouraged to report perceived risks to care and to ask questions if they do not understand what they are told or what they should do.
[2023-09-24] MEDS: SODIUM CHLORIDE 0.9% IV 1,000 ML 100 ML IV CONT (18:40)
[2023-09-24 20:14] VITALS: BP 115/66; PULSE 103; RESP 18; TEMP 36.6; O2SAT 99
[2023-09-24] MEDS: ACETAMINOPHEN 325 MG TABLET 650 MG PO (20:16)
[2023-09-24] MEDS: DOXYCYCLINE HYCLATE 100 MG TABLET PO (20:17)
[2023-09-24] MEDS: NICOTINE (*PBKC) 21 MG PATCH 1 PATCH TRANSDERM (20:18)
[2023-09-24] MEDS: metroNIDAZOLE 500 MG/ISO 100ML 500 MG/100 ML BAG 100 MG IVPB (20:19)
[2023-09-24] MEDS: oxyCODONE HCL (*CRX) 5 MG TAB IR PO (21:30)
[2023-09-24 23:00] VITALS: O2SAT 99
[2023-09-25 04:54] VITALS: BP 118/62; PULSE 112; RESP 18; TEMP 36.1; O2SAT 99
[2023-09-25] MEDS: oxyCODONE HCL (*CRX) 5 MG TAB IR PO ×2 (05:08→18:27)
[2023-09-25] MEDS: SODIUM CHLORIDE 0.9% IV 1,000 ML 100 ML IV CONT ×2 (05:08→15:10)
[2023-09-25] MEDS: metroNIDAZOLE 500 MG/ISO 100ML 500 MG/100 ML BAG 100 MG IVPB ×3 (05:09→21:06)
--- NOTE | 2023-09-25 08:31 | PM.IMHP ---
H&P: HPI History of Present Illness Date/Time: 09/25/23 08:31 Chief Complaint: pelvic pain Narrative: 38-year-old female with pelvic pain. She presented to an outside hospital with severe pelvic pain. She was a evaluated and found to have bilateral pelvic fluid collections/abscesses. Probable tubo-ovarian abscess. She had a recent septic miscarriage. She was inadequately treated with antibiotics. She did not complete her antibiotics. She has pelvic pain and tenderness on exam and CT findings of pelvic abscess. She denies any nausea, vomiting. She denies any chest pain shortness of breath. She denies any vaginal bleeding. She denies any foul-smelling vaginal discharge. Review of Systems Review of Systems: All systems reviewed & are unremarkable except as noted in HPI and below Constitutional: Constitutional: Denies chills, Denies fatigue, Denies fever(s) and Denies weakness Eyes: Eyes: Denies blurry vision, Denies change in vision, Denies loss of peripheral vision, Denies loss of vision, Denies other visual disturbances and Denies eye pain ENT: Denies vertigo, Denies dizziness, Denies hearing loss, Denies mouth pain, Denies nasal obstruction, Denies neck mass and Denies neck pain Cardiovascular: Cardiovascular: Denies chest pain, Denies diaphoresis, Denies syncope, Denies leg edema and Denies dyspnea Respiratory: Respiratory: Denies chest congestion, Denies cough, Denies hemoptysis, Denies dyspnea and Denies wheezing Gastrointestinal: Gastrointestinal: Denies abdominal pain, Denies constipation, Denies diarrhea, Denies nausea and Denies vomiting Genitourinary: Genitourinary: Denies hematuria, Denies change in libido, Denies nocturia, Denies genital lesions, Denies flank pain and Denies urinary urgency Musculoskeletal: Musculoskeletal: Denies abnormal gait, Denies back pain, Denies myalgias, Denies arthralgias, Denies joint swelling, Denies muscle weakness and Denies neck pain Integumentary/Breasts: Skin/Breast: Denies swelling, Denies breast pain, Denies breast mass, Denies dry skin, Denies nipple discharge, Denies unusual bruising and Denies jaundice Neurologic: Denies Neuro-related abnormal movements, Denies Abnormal speech present, Denies abnormal gait, Denies behavioral changes, Denies confusion, Denies vertigo, Denies dizziness, Denies syncope, Denies loss of vision, Denies memory loss, Denies convulsions and Denies weakness Psychiatric: Psychiatric: Denies abnormal sleep pattern, Denies behavioral changes, Denies change in libido, Denies confusion, Denies depression, Denies anhedonia and Denies memory loss Endocrine: Endocrine: Reports no additional endocrine complaints, Denies change in libido and Denies fatigue Hematologic/Lymphatic: Hematologic/Lymphatic: Reports no additional hematologic/lymphatic complaints Allergic/Immunologic: Allergic/Immunologic: Reports no additional allergic/immunologic complaints and Denies wheezing PMFSH Past Medical History Medical History Depression Family History Family History Other Diabetes mellitus Family history of arthritis Family history of malignant neoplasm Family history of mental disorder Social History Social History Smoking packs per day: 1 Smoking cigarettes per day: 20.0 Years smoked: 20 Smoking pack-years: 20.00 Smoking status: Heavy tobacco smoker Tobacco type: cigarettes Second hand tobacco smoke exposure: Yes Alcohol intake: never Substance use: never Substance use type: does not use Lack of Transportation: No Lack of Food: Never True Current Housing: I Have Housing Concerned About Future Housing: No Difficulty Paying Gas/Electric Bills: No Difficulty Paying for Meds: No Currently Unemployed: No Education: Decline to Answer Difficulty w/ Childcare or Fa
[2023-09-25] MEDS: NICOTINE (*PBKC) 21 MG PATCH 1 PATCH TRANSDERM (08:52)
[2023-09-25] MEDS: DOXYCYCLINE HYCLATE 100 MG TABLET PO ×2 (08:52→20:26)
[2023-09-25] MEDS: ACETAMINOPHEN 325 MG TABLET 650 MG PO ×2 (08:56→15:17)
[2023-09-25] MEDS: ARIPiprazole 10 MG TABLET PO (10:59)
[2023-09-25] MEDS: FLUoxetine HCL 20 MG CAPSULE PO (10:59)
[2023-09-25 14:00] VITALS: BP 108/53; PULSE 106; RESP 16; TEMP 37.1; O2SAT 100
[2023-09-25 20:23] VITALS: BP 110/62; PULSE 92; RESP 16; TEMP 37.3; O2SAT 99
[2023-09-26] VITALS (13 sets, daily range): BP systolic 94–145; BP diastolic 52–86; PULSE 63–114; RESP 14–21; TEMP 36.1–37.2; O2SAT 95–100
[2023-09-26] MEDS: SODIUM CHLORIDE 0.9% IV 1,000 ML 100 ML IV CONT ×2 (02:30→23:45)
[2023-09-26] MEDS: ACETAMINOPHEN 325 MG TABLET 650 MG PO (04:25)
[2023-09-26] MEDS: metroNIDAZOLE 500 MG/ISO 100ML 500 MG/100 ML BAG 100 MG IVPB ×3 (05:03→20:51)
[2023-09-26] MEDS: ARIPiprazole 10 MG TABLET PO (08:24)
[2023-09-26] MEDS: FLUoxetine HCL 20 MG CAPSULE PO (08:24)
[2023-09-26] MEDS: DOXYCYCLINE HYCLATE 100 MG TABLET PO ×2 (08:24→20:50)
[2023-09-26] MEDS: FOLIC ACID 1 MG TABLET PO (08:24)
[2023-09-26] MEDS: NICOTINE (*PBKC) 21 MG PATCH 1 PATCH TRANSDERM (08:24)
--- NOTE | 2023-09-26 12:32 | PC.NURSE ---
Pt to preop via wheelchair at 1230
[2023-09-26] MEDS: LACTATED RINGERS 1,000 ML 30 ML IV CONT ×2 (12:40→16:00)
--- NOTE | 2023-09-26 14:00 | WPDHPUPDATE1 ---
History and Physical Update Update Date/Time: 09/26/23 14:00 38-year-old female with pelvic abscesses, fluid collection within the endometrial cavity. We have agreed to perform laparoscopic incision and drainage of pelvic abscesses. We will perform this along with suction D&C History and Physical has been reviewed, including an updated exam of the patient. There are NO changes in the patient's condition. Risks, benefits, and alternatives have been discussed and questions answered. Patient agrees to proceed with procedure.
--- NOTE | 2023-09-26 14:08 | P.PNAN_ITS ---
Anes - Eval Pre Procedure Procedure: Operation Date: 09/26/23 14:00 Proposed Procedures p Laparoscopic Bilateral Salpingectomy - Ivan Shah MD s Suction Dilatation and Curettage - Ivan Shah MD Date/Time: 09/26/23 14:08 Surgeon: Pablo Pre Op Diagnosis: pid Patient Data Age: 38 Gender: F Height: 1.6 m Weight: 82.6 kg Last Vital Signs Temp 98.5 F 09/26/23 12:36 Pulse 63 09/26/23 12:36 Resp 16 09/26/23 12:36 BP 122/63 09/26/23 12:36 Pulse Ox 100 09/26/23 12:36 O2 Del Method Room Air 09/26/23 12:36 Allergies Allergy/AdvReac Type Severity Reaction Status Date / Time No Known Allergies Allergy Verified 09/26/23 13:27 Home Medications Medication Instructions Recorded Confirmed Type aripiprazole 2 mg tablet 10 mg PO DAILY 11/25/20 09/25/23 History fluoxetine 20 mg capsule 20 mg PO DAILY 11/25/20 09/25/23 History folic acid 1 mg tablet 1 mg PO DAILY 09/24/23 09/25/23 History Patient hx anesthesia problems: none Family hx anesthesia problems: none Results Review: All pre-operative results and documents have been reviewed as part of the pre- operative evaluation. [facility] Past Medical History Medical History Anxiety Bipolar 1 disorder Depression Pelvic inflammatory disease Tubo-ovarian abscess Family History Family History Other Diabetes mellitus Family history of arthritis Family history of malignant neoplasm Family history of mental disorder Social History Social History Smoking packs per day: 1 Smoking cigarettes per day: 20.0 Years smoked: 20 Smoking pack-years: 20.00 Smoking status: Heavy tobacco smoker Tobacco type: cigarettes Second hand tobacco smoke exposure: Yes Alcohol intake: never Substance use: never Substance use type: does not use Lack of Transportation: No Lack of Food: Never True Current Housing: I Have Housing Concerned About Future Housing: No Difficulty Paying Gas/Electric Bills: No Difficulty Paying for Meds: No Currently Unemployed: No Education: Decline to Answer Difficulty w/ Childcare or Family Care: No Spiritual care concerns: No Exam Day of Procedure 09/26/23 14:08 Patient weight: overweight Heart: regular rate and rhythm Lungs: clear to auscultation Airway: Mallampati scale class III Neurological: alert and oriented
--- NOTE | 2023-09-26 14:17 | WPDANESEPPF ---
Anes - Initial Pre Proc Eval Procedure: Operation Date: 09/26/23 14:00 Proposed Procedures p Laparoscopic Bilateral Salpingectomy - Ivan Shah MD s Suction Dilatation and Curettage - Ivan Shah MD Date/Time: 09/26/23 14:17 Surgeon: Ivan Shah MD Pre Op Diagnosis: pid Patient Data Age: 38 Gender: F Height: 1.6 m Weight: 82.6 kg Last Vital Signs Temp 36.9 C 09/26/23 12:36 Pulse 63 09/26/23 12:36 Resp 16 09/26/23 12:36 BP 122/63 09/26/23 12:36 Pulse Ox 100 09/26/23 12:36 O2 Del Method Room Air 09/26/23 12:36 Allergies Allergy/AdvReac Type Severity Reaction Status Date / Time No Known Allergies Allergy Verified 09/26/23 13:27 Home Medications Medication Instructions Recorded Confirmed Type aripiprazole 2 mg tablet 10 mg PO DAILY 11/25/20 09/25/23 History fluoxetine 20 mg capsule 20 mg PO DAILY 11/25/20 09/25/23 History folic acid 1 mg tablet 1 mg PO DAILY 09/24/23 09/25/23 History Patient hx anesthesia problems: none Family hx anesthesia problems: none Results Review: All pre-operative results and documents have been reviewed as part of the pre-operative evaluation. [facility] Past Medical History Medical History Anxiety Bipolar 1 disorder Depression Pelvic inflammatory disease Tubo-ovarian abscess Family History Family History Other Diabetes mellitus Family history of arthritis Family history of malignant neoplasm Family history of mental disorder Social History Social History Smoking packs per day: 1 Smoking cigarettes per day: 20.0 Years smoked: 20 Smoking pack-years: 20.00 Smoking status: Heavy tobacco smoker Tobacco type: cigarettes Second hand tobacco smoke exposure: Yes Alcohol intake: never Substance use: never Substance use type: does not use Lack of Transportation: No Lack of Food: Never True Current Housing: I Have Housing Concerned About Future Housing: No Difficulty Paying Gas/Electric Bills: No Difficulty Paying for Meds: No Currently Unemployed: No Education: Decline to Answer Difficulty w/ Childcare or Family Care: No Spiritual care concerns: No Anes - Eval Final PreProcedure Day of Procedure 09/26/23 14:17 Patient weight: obese Heart: regular rate and rhythm Lungs: decreased breath sounds Airway: Mallampati scale class II Neurological: alert and oriented Last oral intake: >/= 8 hours ASA classification: III Emergent: no Anesthetic plan: proceed Anesthesia type and monitoring: general ETT and standard monitoring Results Review: All pre-operative results and documents have been reviewed as part of the pre-operative evaluation. Informed Consent: The patient's anesthetic plan and its attendant risks and benefits were discussed with the patient/family/POA. Questions were solicited and answers provided to the satisfaction of the patient/family/POA.
[2023-09-26] MEDS: fentaNYL CITRATE INJ (*CRX) 100 MCG/2 ML VIAL 25 MCG IV PUSH ×4 (16:25→17:10)
--- NOTE | 2023-09-26 18:35 | W.PM.PROC2 ---
Procedure Note - Detailed Date of Procedure 09/26/23 Pre-op Diagnosis pid, Pelvic abscess, pelvic pain, leukocytosis Post-op Diagnosis Same ( bilateral tubo-ovarian abscess, pelvic abscess, diffuse pelvic adhesions, frozen pelvis,) Procedure Performed Diagnostic laparoscopy Surgeon Ivan Shah MD Anesthesia General Indications Pelvic pain , bilateral pelvic abscess Findings Frozen pelvis, the colon and rectum and the uterus bilateral fallopian tubes, and bilateral ovaries were all adherent. Multiple abscess pockets were found and they were distributed in a bilateral fashion. Through the tubes, bilateral tubo-ovarian abscess, pelvic abscess in the posterior cul-de-sac. Description of Procedure The patient was taken to the operating room. She was prepped and draped in the dorsal lithotomy position after induction general anesthesia. A 5 mm incision was made with a scalpel on the abdominal skin in the left upper quadrant of the abdomen. A 5 mm trocar was inserted into the intra-abdominal cavity under direct visualization the scope. In the same fashion a 11 mm left lower quadrant trocar was inserted and a 5 mm infraumbilical trocar was inserted. 1 hour of adhesiolysis was performed. This was done with blunt and sharp dissection. Using graspers and LigaSure cautery. During this adhesiolysis the bilateral fallopian tubes and right ovary were removed. Each step required adhesiolysis transection of scar tissue And the separation of adherent organs. So in about an hour and 15 minutes of surgery, 1 hour was adhesiolysis and 15 minutes was removal of the bilateral fallopian tubes and right ovary. Adhesiolysis was also performed between the colon and the bilateral tubes and ovaries and uterus. The rectum was adherent to the uterus. It was . The ureter on the right was dissected out and observed to be intact throughout the pelvis. at the end of the dissection the tubes and right ovary were in pieces. Pieces were placed in an endobag and taken out the left lower quadrant trocar site. Copious amounts of irrigation were used. The inner irrigation contained antibiotics.The pelvis was irrigated. The pneumoperitoneum was reduced. The trocars were removed. Skin was closed with subcuticular 4 micro. The patient's incisions were covered with Dermabond. Hysteroscopy D and C were performed. The hysteroscope was inserted. The speculum and tenaculum were inserted prior to that and the cervix was grasped. The normal endometrial cavity was observed. A D&C was performed. This was done with a medium curette and light curettage . Speculum and tenaculum were removed. The patient tolerated the procedure well. She is taking covered stable condition. Estimated Blood Loss -50.0 Complications No immediate complications Condition Stable Disposition Same day
[2023-09-26] MEDS: oxyCODONE HCL (*CRX) 5 MG TAB IR 10 MG PO (20:49)
[2023-09-27] VITALS: BP 115/74; PULSE 81; RESP 16; TEMP 36.5; O2SAT 94
[2023-09-27 04:37] VITALS: BP 102/55; PULSE 76; RESP 16; TEMP 36.4; O2SAT 94
[2023-09-27] MEDS: metroNIDAZOLE 500 MG/ISO 100ML 500 MG/100 ML BAG 100 MG IVPB (06:21)
[2023-09-27] MEDS: FLUoxetine HCL 20 MG CAPSULE PO (08:25)
[2023-09-27] MEDS: DOXYCYCLINE HYCLATE 100 MG TABLET PO (08:25)
[2023-09-27] MEDS: ARIPiprazole 10 MG TABLET PO (08:25)
[2023-09-27] MEDS: FOLIC ACID 1 MG TABLET PO (08:26)
[2023-09-27] MEDS: NICOTINE (*PBKC) 21 MG PATCH 1 PATCH TRANSDERM (08:26)
--- NOTE | 2023-09-27 11:02 | PM.GYNPNOP ---
[employer] - A/P Postoperative Procedures: Procedures Operation Date: 09/26/23 14:00 Actual Procedure Side Surgeon p Laparoscopic Incision and Drainage of Pelvic Abscess, Bilateral Salpingectomy, Right Oophorectomy Not Applicable Ivan Shah MD s Hysteroscopy, Dilation and Curettage Not Applicable Ivan Shah MD Postoperative day: 1 Postoperative status: doing well Postoperative plan: see orders Time Spent With Patient Time: Total time spent is greater than 50% in coordination of care (as documented) at patient's floor/unit and/or counseling patient: Time with patient: less than 15 minutes [employer]- PN:Subj Post-Op Subjective Date/time seen: 09/27/23 11:02 Subjective: patient reports feeling better, patient has no complaints and pain is well controlled Exam Const: General: healthy appearing, comfortable and no acute distress Resp: Auscultation: clear to auscultation bilaterally, no rales, no rhonchi and no wheezes Cardio: Rate: regular rate Heart sounds: no click, no murmurs and no rubs GI: Inspection: non-distended Auscultation: normal bowel sounds Extrem: General: normal to inspection, no pedal edema and no calf tenderness [employer] - PN: Obj Data Vital Signs Vital Signs: Vital Signs - 24 hr 09/26/23 12:36 09/26/23 16:00 09/26/23 16:15 Temperature 98.5 F 98.9 F Pulse Rate 63 97 114 H Respiratory Rate 16 19 14 Blood Pressure 122/63 94/52 L 145/83 H Pulse Oximetry 100 96 100 Oxygen Delivery Room Air Simple Face Mask Simple Face Mask Oxygen Flow Rate 10 10 09/26/23 16:30 09/26/23 16:45 09/26/23 17:00 Temperature Pulse Rate 106 H 109 H 105 H Respiratory Rate 15 14 21 H Blood Pressure 136/71 136/71 136/82 Pulse Oximetry 98 96 97 Oxygen Delivery Room Air Room Air Room Air Oxygen Flow Rate 09/26/23 17:15 09/26/23 17:30 09/26/23 18:00 Temperature 97.6 F Pulse Rate 100 101 H 101 H Respiratory Rate 16 16 17 Blood Pressure 135/86 124/81 140/77 Pulse Oximetry 96 95 98 Oxygen Delivery Room Air Room Air Oxygen Flow Rate 09/26/23 18:15 09/26/23 18:45 09/26/23 20:56 Temperature 97 F L Pulse Rate 95 92 93 Respiratory Rate 17 17 18 Blood Pressure 132/82 126/67 133/72 Pulse Oximetry 98 96 97 Oxygen Delivery Oxygen Flow Rate 09/27/23 00:00 09/27/23 04:37 Temperature 97.7 F 97.5 F L Pulse Rate 81 76 Respiratory Rate 16 16 Blood Pressure 115/74 102/55 L Pulse Oximetry 94 94 Oxygen Delivery Oxygen Flow Rate Intake/Output Intake/Output: Intake & Output 09/24/23 09/25/23 09/26/23 09/27/23 23:59 23:59 23:59 23:59 Intake Total 200 4000 3450 640 Balance 200 4000 3450 640 Meds/Results Medications: Active Medications Generic Name Dose Route Start Last Admin Trade Name Freq PRN Reason Stop Dose Admin Acetaminophen 650 mg 09/24/23 18:14 09/26/23 04:25 Acetaminophen 325 Mg Tablet PO 650 mg Q6H PRN Administration Mild Pain (1-3) or Fever Aripiprazole 10 mg 09/25/23 10:00 09/27/23 08:25 Aripiprazole 10 Mg Tablet PO 10 mg DAILY WILLIAMS Administration Aripiprazole 10 mg 09/27/23 09:00 09/27/23 08:39 Aripiprazole 10 Mg Tablet PO Not Given DAILY WILLIAMS Doxycycline Hyclate 100 mg 09/24/23 21:00 09/27/23 08:25 Doxycycline Hyclate 100 Mg Tablet PO 100 mg Q12HR WILLIAMS Administration Fentanyl Citrate 25 mcg 09/26/23 14:19 09/26/23 17:10 Fentanyl Citrate Inj (*Crx) 100 Mcg/2 Ml Vial IV PUSH 25 mcg Q2M PRN Administration Pain Fluoxetine HCl 20 mg 09/25/23 10:00 09/27/23 08:25 Fluoxetine Hcl 20 Mg Capsule PO 20 mg DAILY WILLIAMS Administration Fluoxetine HCl 20 mg 09/27/23 09:00 09/27/23 08:39 Fluoxetine Hcl 20 Mg Capsule PO Not Given DAILY WILLIAMS Folic Acid 1 mg 09/26/23 09:00 09/27/23 08:26 Folic Acid 1 Mg Tablet PO 1 mg DAILY WILLIAMS Administration Folic Acid 1 mg 09/27/23 09:00 09/27/23 08:39 Folic Acid 1 Mg Tablet PO Not Given DAILY REPLACED BY [facility] Cefotetan Disodium 2 gm/ 100 ml
--- NOTE | 2023-09-27 11:03 | P.DS_ITS ---
DS: Admitting Diagnosis Discharge Date September 27, 2023 Admitting Diagnosis pelvic inflammatory disease, tubo-ovarian abscess DS: Discharge Diagnosis Discharge Diagnosis (1) Pelvic inflammatory disease: Code(s): N73.9 - Female pelvic inflammatory disease, unspecified Status: Acute (2) Tubo-ovarian abscess: Code(s): N70.93 - Salpingitis and oophoritis, unspecified Status: Acute (3) Postoperative abdominal pain: Code(s): R10.9 - Unspecified abdominal pain; G89.18 - Other acute postprocedural pain Status: Acute DS: Summary Hospital Course Hospital Course: 38-year-old female admitted for pelvic inflammatory disease and bilateral tubo- ovarian abscess. Pelvic abscess. Given IV antibiotics for 24-36 hours, then had laparoscopic surgery were a bilateral salpingectomy, right oophorectomy and incision and drainage of pelvic abscess along with adhesiolysis were performed. Hysteroscopy D and C were performed it was normal. She had bilateral tubo- ovarian abscess, frozen pelvis, posterior cul-de-sac abscess. She is doing well on postop day 1 will be sent home. She will continue oral antibiotics. Time Spent with Patient Time attestation: Total time spent providing and/or coordinating discharge services: DS: Data Data Completed and Pending Pending studies at discharge: Pending at discharge 09/26/23 15:27 Surgical [PTH] Routine 09/26/23 15:47 Surgical [PTH] Routine Discharge Plan Discharge Discharging Clinician: Ivan Shah Patient Disposition: Home, Self-Care Activity: pelvic rest Diet: regular Patient Instructions: Antibiotic Form, How to Stop Smoking (DC) Stand Alone Forms: General Discharge Information Follow-up/Referrals: Ivan Shah MD [Physician] - Discharge Medications: New oxycodone-acetaminophen 5-325 mg tablet 1 tablet PO Q4H PRN (Reason: pain) Qty: 12 0RF Continued fluoxetine 20 mg capsule 20 mg PO DAILY aripiprazole 2 mg tablet 10 mg PO DAILY folic acid 1 mg tablet 1 mg PO DAILY Date of admission: 09/25/23 10:00 Primary Care Provider: Madison,Latoya Admitting Provider: Ivan Shah Attending physician on admission: Ivan Shah Condition: Stable
[2023-09-27] MEDS: oxyCODONE HCL (*CRX) 5 MG TAB IR 10 MG PO (11:05)
--- NOTE | 2023-09-27 15:43 | PC.NURSE ---
Toe Sewer contacted by [facility] to report Negative Blood Cultures drawn at their facility prior to her transfer to us. Patient has been discharged today. machine setter supervisor told us to direct Bryan to contact discharging provider, Carlito Shah
== END 2023-09-27 12:30 | disposition home or self-care (01) | DRG 513 ==
PROVIDERS: Admitting Provider Obstetrics & Gynecology; PCP Nurse Practitioner; Visit Provider Obstetrics & Gynecology
PROC: 0DNE4ZZ Release Large Intestine, Percutaneous Endoscopic Approach (ICD-10-PCS; CPT 49320; principal; 2023-09-26 14:00)
PROC: 0DNE4ZZ Release Large Intestine, Percutaneous Endoscopic Approach (ICD-10-PCS; 2023-09-26 14:00)
DX: N73.8 Other specified female pelvic inflammatory diseases (principal); F17.210 Nicotine dependence, cigarettes, uncomplicated; N70.93 Salpingitis and oophoritis, unspecified; N73.6 Female pelvic peritoneal adhesions (postinfective); N94.89 Other specified conditions associated with female genital organs and menstrual cycle; Z28.21 Immunization not carried out because of patient refusal
CPT/HCPCS: 87070; 88305; A9270; J0330; J1100; J1170; J1836; J1940; J2250; J2405; J2704; J3010; J7030; J7120